=== PATIENT | male | born 1980 | race Caucasian/White ===

== ENCOUNTER 2016-08-09 05:54 | Day surgery (SDC) | payer BC ==
[~2016-08-09] VITALS: Ht 188 cm; Wt 113.8 kg
--- NOTE | 2016-08-09 15:30 | OR ---
ADMIT: 08/09/2016 RM/LOC: [facility] MR#: [id number] [address] [id number] TETE [place] [address] [place] [address] Operative/Delivery Room Report SEX: M AGE: 36 : 1980 SURGERY DATE: 08/09/2016 SURGEON: Pancoh Rader MD PREOPERATIVE DIAGNOSES: Pain with successful spinal cord stimulator trial. POSTOPERATIVE DIAGNOSES: Pain with successful spinal cord stimulator trial. PROCEDURE: Thoracic 10-11 and 9-10 laminectomy for implant of paddle lead with connection to new internal pulse generators, implanted at the second incision in the operative site with intraoperative programming of device and evaluation of impedances. DESCRIPTION OF PROCEDURE: After gaining informed consent, the patient was taken to the operating theater, placed under general endotracheal anesthesia in supine position and turned prone on a Cesar table. All pressure points were purposely padded prior to performing the procedure. He was prepped and draped in a sterile fashion. A time-out was utilized to ascertain the correct site and side of surgery as well as other pertinent patient historical information. Counts were obtained at the beginning and end of the case with no change betwixt the two. Antibiotics were given within 1 hour of incision. A fluoroscope was brought into the field, and a needle was placed on the right at T12. Once this was completed, an incision was fashioned, and this was taken down over the top of the 10-11 space fashioning a hemilaminectomy in the top half of T10 to the bottom of T11. The dural space was visualized, and after multiple glove changes that were performed throughout the case, the lead was implanted. This went to slide to either side and would not stay midline at that point because of some buckling of ligamentum flavum. I increased the incision, extended the subperiosteal dissection, and then fashioned hemilaminectomy also at thoracic 9-10. The dura was visualized. I was able to see the paddle and very cautiously guided along the midline plane after resecting some ligamentum flavum there. I left bony bridge over the top of thoracic 10 to keep the paddle in place. Once this was completed, the paddle was as centrally located as could be, and the lockable tie downs were placed and sewn into the remainder of the spinous process of thoracic 10. A loop was then placed, and this was sewn down as well. At this point, a separate incision was fashioned, and a pocket was made in the left flank region. This was taken down but not more than couple of centimeters that was allowable for the communication and charging the device. Once this was prepared, multiple hand glove changes were performed again. The lead was tunneled down, connected to the internal pulse generator, and then, the entire system was evaluated with initiation programming. Once this was completed, attention was then turned to closure utilizing a multilayered ADMIT: 08/09/2016 RM/LOC: [facility] MR#: [id number] [address] [place] [id number] TETE TOBAR [address] [place] [address] Operative/Delivery Room Report SEX: M AGE: 36 : 1980 closure in the thoracodorsal fascia as well as in the deep tissues at the internal pulse generator site. Multiple layers of simple and interrupted 2-0 Vicryls were utilized, and then, 3-0 subcuticular STRATAFIX was used on the skin and placed with Steri-Strips over that. COMPLICATIONS: None. ESTIMATED BLOOD LOSS: Charted. SPECIMEN: None. DISPOSITION: Extubated and taken to Postanesthesia Care Unit. Pancho Rader MD/ lorelei JOB #: [id number] CC: Pancho Rader, Attending Physician Dagoberto Monroy, Family Physician
== END 2016-08-09 12:10 | disposition home or self-care (01) ==
LOC: SSS 05:54
PROC: 00HU0MZ Insertion of Neurostimulator Lead into Spinal Canal, Open Approach (ICD-10-PCS; principal; 2016-08-09)
PROC: 0JH70MZ Insertion of Stimulator Generator into Back Subcutaneous Tissue and Fascia, Open Approach (ICD-10-PCS; principal; 2016-08-09)
DX: G89.29 Other chronic pain (principal); M51.16 Intervertebral disc disorders with radiculopathy, lumbar region; M48.06 Spinal stenosis, lumbar region; Z98.890 Other specified postprocedural states; Z85.72 Personal history of non-Hodgkin lymphomas; Z79.899 Other long term (current) drug therapy